=== PATIENT | female | born 1945 ===

== ENCOUNTER 2024-05-21 06:19 | Day surgery (SDC) | payer OTHER ==
[2024-05-14 09:46] LABS: PARTIAL THROMBOPLASTIN TIME 27.2 SECONDS (22.0-34.0); PROTHROMBIN TIME 10.5 SECONDS (9.0-11.5)
[~2024-05-21 06:19] MED LIST: CELEBREX200MG; CRESTOR10 MG PO; LOSARTAN-HCTZ1 EAC1 PO; SYNTHROID75 MCG PO; VITAMIN D310 MCG/1 M PO
[2024-05-21] MEDS ORDERED: CEFAZOLIN SODIUM 1,000 MG VIAL ONE (10:32)
== END 2024-05-21 15:50 | disposition home or self-care (01) ==
LOC: CIR.AMB 06:19
PROVIDERS: ATTEND Orthopaedic Surgery Hand Surgery
DX: M18.12 Unilateral primary osteoarthritis of first carpometacarpal joint, left hand (principal); I10 Essential (primary) hypertension; M19.90 Unspecified osteoarthritis, unspecified site; K29.70 Gastritis, unspecified, without bleeding